=== PATIENT | male | born 1995 | race Hispanic/Latino ===

== ENCOUNTER 2016-10-22 00:11 | Emergency (ER) | payer OTHER ==
[2016-10-22] MEDS ORDERED: MOTRIN PO ONE (01:08)
[2016-10-22 03:26] VITALS: BP 127/76
[2016-10-22] MEDS ORDERED: FLEXERIL PO ONE (05:22)
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
== END 2016-10-22 06:51 | disposition home or self-care (01) ==
LOC: ED 00:11
DX: S16.1XXA Strain of muscle, fascia and tendon at neck level, initial encounter (principal); M54.5 Low back pain; M54.6 Pain in thoracic spine; G43.909 Migraine, unspecified, not intractable, without status migrainosus; F17.200 Nicotine dependence, unspecified, uncomplicated; V89.2XXA Person injured in unspecified motor-vehicle accident, traffic, initial encounter; Y93.89 Activity, other specified; Y99.9 Unspecified external cause status; Y92.410 Unspecified street and highway as the place of occurrence of the external cause
CPT/HCPCS: 72072; 72100

== ENCOUNTER 2018-03-18 19:18 | Emergency (ER) | payer SELFPAY ==
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
[2018-03-18 21:08] VITALS: BP 121/76
== END 2018-03-18 21:31 | disposition home or self-care (01) ==
LOC: ED 19:18
DX: S16.1XXA Strain of muscle, fascia and tendon at neck level, initial encounter (principal); M54.9 Dorsalgia, unspecified; G43.909 Migraine, unspecified, not intractable, without status migrainosus; J45.909 Unspecified asthma, uncomplicated; F17.200 Nicotine dependence, unspecified, uncomplicated; F42.9 Obsessive-compulsive disorder, unspecified; V49.59XA Passenger injured in collision with other motor vehicles in traffic accident, initial encounter; Y93.89 Activity, other specified; Y92.89 Other specified places as the place of occurrence of the external cause; Y99.8 Other external cause status
CPT/HCPCS: 99282

== ENCOUNTER 2020-04-02 14:31 | Emergency (ER) | payer SELFPAY ==
[2020-04-02 14:56] VITALS: BP 122/81
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
--- NOTE | 2020-04-02 16:40 | Cat Scan Report ---
CT head/brain wo con INDICATION: right sided headache, history of TBI. TECHNIQUE: Routine CT head. All CT scans at this location are performed using CT dose reduction for A WESLEY by means of automated exposure control. COMPARISON: None. FINDINGS: Intracranial: Rooney-white matter differentiation is maintained. No intracranial hemorrhage. No extra a xial collection.. No hydrocephalus. No herniation. Sinuses: Paranasal sinuses and mastoid air cells are essentially clear. Orbits: Globes are intact. Calvarium: No acute fracture. IMPRESSION: 1. No acute intracranial abnormality. Signer Name: Nazario Lin MD Signed: 04/02/2020 4:36 PM Workstation Name: [id number]
== END 2020-04-02 17:27 | disposition home or self-care (01) ==
LOC: ED 14:31
DX: R51 Headache (principal); G89.29 Other chronic pain; G43.909 Migraine, unspecified, not intractable, without status migrainosus; J45.909 Unspecified asthma, uncomplicated; F17.200 Nicotine dependence, unspecified, uncomplicated; F42.8 Other obsessive-compulsive disorder; Z79.899 Other long term (current) drug therapy
CPT/HCPCS: 70450

== ENCOUNTER 2020-05-27 20:28 | Inpatient (IN) | payer OTHER ==
[2020-05-27] MEDS ORDERED: levETIRAcetam 1000 MG/NS 0.75% 1,000 MG/100 ML BAG IV ONE (20:35)
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
[2020-05-27] MEDS ORDERED: ROCURONIUM 50 MG/5 ML INJ IV ONE (20:50)
[2020-05-27] MEDS ORDERED: ETOMIDATE 20 MG/10 ML INJ IV ONE (20:50)
[2020-05-27] MEDS ORDERED: SODIUM CHLORIDE 0.9% 1000 ML 1,000 ML IV ONE (20:50)
[2020-05-27] MEDS ORDERED: fentaNYL 100 MCG/2 ML INJ IV PRN (20:51)
[2020-05-27] MEDS ORDERED: LIP THERAPY VASELINE TP PRN (20:51)
[2020-05-27] MEDS ORDERED: MINERAL OIL/PETROLATUM, WHITE OPHTH OINT 3.5 GM OU PRN (20:51)
[2020-05-27] MEDS ORDERED: VALPROATE SODIUM 500 MG in SODIUM CHLORIDE 0.9% 100 ML IV ONE (20:57)
[2020-05-27] MEDS: fentaNYL DRIP Premix 2,000 MCG/100 ML BAG IV SCH (21:30)
[2020-05-27 21:35] LABS: Amphetamine Screen,Urine PRESUMPTIVE NEGATIVE; Benzodiazepines Screen,Urine PRESUMPTIVE NEGATIVE; Cannabinoid Screen,Urine PRESUMPTIVE POSITIVE; Cocaine Screen,Urine PRESUMPTIVE NEGATIVE; Methadone Screen,Urine PRESUMPTIVE NEGATIVE; Opiate Screen,Urine PRESUMPTIVE NEGATIVE
[2020-05-27 21:42] LABS: Bacteria,Urine 1+ /HPF (Negative); Bilirubin,Urine NEG (Negative); Blood,Urine SM (Negative); Color,Urine Colorless (Yellow); Protein,Urine <15 mg/dL mg/dL (Negative); RBC,Urine < 1.0 /HPF (0.0-6.0); Urobilinogen,Urine < 2.0 mg/dL (<2.0)
--- NOTE | 2020-05-27 22:05 | Cat Scan Report ---
CT BRAIN: 05/27/2020 INDICATION / CLINICAL INFORMATION: Seizure. COMPARISON: 04/02/2020 FINDINGS: BRAIN/INTRACRANIAL STRUCTURES: Unenhanced CT images of the brain were obtained and compared to the re cent prior exam from 04/02/2020. There has been no change. There is no evidence of acute abnormality. Ventricles and sulci are slightly prominent in size for a patient of this age, consistent with some u nderlying diffuse cerebral atrophy. There is no CT evidence of acute ischemic injury, hemorrhage, or mass. There are no abnormal extra-ax ial fluid collections. EXTRACRANIAL STRUCTURES: Unremarkable. IMPRESSION: No acute abnormality. No change when compared to the prior exam. All CT scans at this location are performed using dose reduction to ALARA by means of automated expos ure control. Signer Name: Donnie Cao MD Signed: 05/27/2020 10:00 PM Workstation Name: [id number]
--- NOTE | 2020-05-27 22:14 | XRay Report ---
CHEST 1 VIEW INDICATION / CLINICAL INFORMATION: ETT placement. COMPARISON: 07/20/2010 FINDINGS: SUPPORT DEVICES: Interval placement of NG tube with its tip not visualized on this exam but noted to traverse the diaphragm. Interval placement of ET tube with its tip at the level the clavicles. HEART / MEDIASTINUM: No significant abnormality. LUNGS / PLEURA: No significant pulmonary or pleural abnormality. No pneumothorax. ADDITIONAL FINDINGS: No significant additional findings. IMPRESSION: 1. Interval placement of ET tube and NG tube but appropriate position. Signer Name: Dale Cuevas MD Signed: 05/27/2020 10:10 PM Workstation Name: [id number]
[2020-05-27 22:15] LABS: Hematocrit 44.4 % (35.5-45.6); Hemoglobin 14.8 gm/dl (11.8-15.2)
[2020-05-27 22:18] LABS: INR 1.22 (0.87-1.13)
[2020-05-27 22:31] LABS: Alanine Aminotransferase 9 units/L (7-56); Albumin 4.1 g/dL (3.9-5); BUN/Creatinine Ratio 12; Blood Urea Nitrogen 11 mg/dL (9-20); Calcium 8.4 mg/dL (8.4-10.2); Hemolysis Index 21
[2020-05-27] MEDS ORDERED: VALPROATE SODIUM IV STA (22:43)
[2020-05-27] MEDS ORDERED: SODIUM CHLORIDE 0.9% IV STA (22:43)
[2020-05-27] MEDS ORDERED: ONDANSETRON 4 MG/2 ML INJ IV PRN (23:11)
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
[2020-05-27] MEDS ORDERED: LORazepam 2 MG/ML VIAL IV PRN (23:22)
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
[2020-05-28] MEDS ORDERED: ENOXAPARIN 40 MG/0.4 ML INJ SUB-Q ONE (00:19)
[2020-05-28] MEDS ORDERED: LACTATED RINGERS 1,000 ML ONE (00:20)
[2020-05-28] MEDS ORDERED: ETOMIDATE 20 MG/10 ML INJ IV ONE (00:24)
[2020-05-28] MEDS ORDERED: ROCURONIUM 50 MG/5 ML INJ IV ONE (00:24)
[2020-05-28] MEDS: LACTATED RINGERS 1,000 ML IV SCH ×2 (00:25→22:25)
--- NOTE | 2020-05-28 01:14 | XRay Report ---
CHEST 1 VIEW 12:06 AM INDICATION / CLINICAL INFORMATION: Follow-up respiratory failure. COMPARISON: Yesterday. FINDINGS: SUPPORT DEVICES: The tip of the endotracheal tube is now approximately 2 cm above the analia. The pos ition of the nasogastric tube has not changed. HEART / MEDIASTINUM: No significant abnormality. LUNGS / PLEURA: Mild focal parenchymal disease is present in the left retrocardiac region. The right lung is clear. No pleural effusion. No pneumothorax. ADDITIONAL FINDINGS: No significant additional findings. IMPRESSION: 1. New parenchymal disease in the left retrocardiac region is more likely related to atelectasis than pneumonia. 2. Endotracheal tube tip is now 2 cm above the analia. Signer Name: Roberto Lockwood MD Signed: 05/28/2020 1:09 AM Workstation Name: [id number]
[2020-05-28] MEDS ORDERED: fentaNYL DRIP Premix 2,000 MCG/100 ML BAG IV ONE ×2 (01:51→07:35)
[2020-05-28] MEDS: fentaNYL DRIP Premix 2,000 MCG/100 ML BAG IV SCH (01:53)
[2020-05-28 04:50] LABS: BUN/Creatinine Ratio 11; Blood Urea Nitrogen 9 mg/dL (9-20); Hemolysis Index 11
[2020-05-28 05:15] LABS: Basophils % (Auto) 0.2 % (0.0-1.8); Eosinophils % (Auto) 0.1 % (0.0-4.3); Hematocrit 44.1 % (35.5-45.6); Hemoglobin 14.7 gm/dl (11.8-15.2); Lymphocytes # (Auto) 1.2 K/mm3 (1.2-5.4); Lymphocytes % (Auto) 8.1 % (13.4-35.0); Mean Corpuscular HGB Conc 33 % (32-34); Mean Corpuscular Volume 84 fl (84-94); Monocytes # (Auto) 0.9 K/mm3 (0.0-0.8); Monocytes % (Auto) 6.6 % (0.0-7.3); Platelet Count 156 K/mm3 (140-440); Red Blood Count 5.25 M/mm3 (3.65-5.03); Red Cell Distribution Width 14.8 % (13.2-15.2)
[2020-05-28 05:19] LABS: INR 1.2 (0.87-1.13)
[2020-05-28] MEDS: SODIUM CHLORIDE 0.9% IV SCH ×3 (05:56→22:24)
[2020-05-28] MEDS: VALPROATE SODIUM IV SCH ×3 (05:56→22:24)
[2020-05-28] MEDS ORDERED: levETIRAcetam 500 MG in DEXTROSE 5% IN WATER 100 ML IV SCH (10:00)
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
[2020-05-28] MEDS ORDERED: LORazepam 2 MG/ML VIAL ONE (14:12)
[2020-05-28] MEDS ORDERED: diphenhydrAMINE 50 MG/ML VIAL ONE (14:12)
[2020-05-28] MEDS ORDERED: HALOPERIDOL LACTATE 5 MG/1 ML INJ ONE (14:12)
[2020-05-28] MEDS ORDERED: LORazepam 2 MG/ML VIAL IV ONE (15:23)
[2020-05-28] MEDS ORDERED: HALOPERIDOL LACTATE 5 MG/1 ML INJ IM PRN (15:24)
[2020-05-28] MEDS ORDERED: diphenhydrAMINE 50 MG/ML VIAL IV ONE (15:24)
[2020-05-28] MEDS ORDERED: ZIPRASIDONE MESYLATE 20 MG VIAL IM ONE ×2 (15:25→15:29)
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
[2020-05-28] MEDS ORDERED: ENOXAPARIN 40 MG/0.4 ML INJ SUB-Q SCH (22:00)
[2020-05-29] MEDS ORDERED: MORPHINE 2 MG/1 ML INJ IV ONE (00:15)
[2020-05-29] MEDS: SODIUM CHLORIDE 0.9% IV SCH (05:05)
[2020-05-29] MEDS: VALPROATE SODIUM IV SCH (05:05)
[2020-05-29 08:22] VITALS: BP 113/75
--- NOTE | 2020-05-29 09:54 | Discharge Summary ---
Providers - Providers Date of Admission: 05/27/20 23:02 Date of discharge: 05/29/20 Attending physician: CASSIE GOODRICH 05/27/20 20:51 Consult to Physician [CONS] Stat Comment: Dr. Ricardo spoke with Dr. Mahajan @ 1960 Consulting Provider: MEGAN MAHAJAN Physician Instructions: Reason For Exam: rep failure 05/27/20 23:13 Consult to Dietitian/Nutrition [CONS] Routine Physician Instructions: Reason For Exam: Reason for Consult: Diet education Primary care physician: MANAGER [employer]MENT Hospitalization Condition: Critical Disposition: DC-01 TO HOME OR SELFCARE Exam - Constitutional Vitals: Temp Pulse Resp BP Pulse Ox 97.3 F L 60 20 113/75 94 05/29/20 07:20 05/29/20 07:20 05/29/20 07:20 05/29/20 07:20 05/29/20 07:20 General appearance: Present: no acute distress, well-nourished - EENT Eyes: Present: PERRL ENT: hearing intact, clear oral mucosa - Neck Neck: Present: supple, normal ROM - Respiratory Respiratory effort: normal Respiratory: bilateral: CTA - Cardiovascular Heart Sounds: Present: S1 & S2. Absent: rub, click - Extremities Extremities: pulses symmetrical, No edema Peripheral Pulses: within normal limits - Abdominal General gastrointestinal: Present: soft, non-tender, non-distended, normal bowel sounds Male genitourinary: Present: normal - Integumentary Integumentary: Present: clear, warm, dry - Musculoskeletal Musculoskeletal: gait normal, strength equal bilaterally - Psychiatric Psychiatric: appropriate mood/affect, intact judgment & insight - Neurologic Neurologic: CNII-XII intact, moves all extremities Plan Follow up with: PRIMARY CARE, [Primary Care Provider] - 3-5 Days
== END 2020-05-29 14:49 | disposition home or self-care (01) | DRG 100 ==
LOC: ED 20:28 → CC1 23:02 → 4A 05-28 17:30
PROVIDERS: ADMIT Internal Medicine Geriatric Medicine; ATTEND Internal Medicine
PROC: 0BH17EZ Insertion of Endotracheal Airway into Trachea, Via Natural or Artificial Opening (ICD-10-PCS; principal; 2020-05-27)
PROC: 5A1945Z Respiratory Ventilation, 24-96 Consecutive Hours (ICD-10-PCS; 2020-05-27)
PROC: 4A033R1 Measurement of Arterial Saturation, Peripheral, Percutaneous Approach (ICD-10-PCS; 2020-05-27)
DX: G40.901 Epilepsy, unspecified, not intractable, with status epilepticus (principal); J96.01 Acute respiratory failure with hypoxia; F23 Brief psychotic disorder; Z87.820 Personal history of traumatic brain injury; G43.909 Migraine, unspecified, not intractable, without status migrainosus; J45.909 Unspecified asthma, uncomplicated; F17.200 Nicotine dependence, unspecified, uncomplicated; D72.829 Elevated white blood cell count, unspecified
CPT/HCPCS: 36415; 70450; 71045; 80048; 80053; 80164; 80307; 80320; 81001; 82550; 82805; 83735; 85014; 85018; 85025; 85049; 85610; 93005; 94002; G0378; G0480; J1200; J1630; J1650; J2060; J2270; J2704; J3010; J3486; J7030; J7120

== ENCOUNTER 2022-03-10 10:25 | Emergency (ER) | payer SELFPAY ==
[2022-03-10] MEDS ORDERED: SODIUM CHLORIDE 0.9% 1000 ML 1,000 ML IV ONE (10:38)
[2022-03-10] MEDS ORDERED: levETIRAcetam 500 MG in DEXTROSE 5% IN WATER 100 ML IV NR (10:41)
[2022-03-10 10:47] VITALS: BP 117/69
[2022-03-10 11:34] LABS: Alanine Aminotransferase 12 units/L (7-56); Albumin 4.5 g/dL (3.9-5); BUN/Creatinine Ratio 15; Blood Urea Nitrogen 12 mg/dL (9-20); Calcium 9.2 mg/dL (8.4-10.2); Hemolysis Index 5
[2022-03-10 11:37] LABS: INR 0.97 (0.87-1.13)
[2022-03-10 11:40] LABS: Basophils % (Auto) 0.5 % (0.0-1.8); Eosinophils # (Auto) 0.1 K/mm3 (0.0-0.4); Eosinophils % (Auto) 2.3 % (0.0-4.3); Hemoglobin 15.3 gm/dl (11.8-15.2); Lymphocytes # (Auto) 1.4 K/mm3 (1.2-5.4); Lymphocytes % (Auto) 25.1 % (13.4-35.0); Mean Corpuscular HGB Conc 33 % (32-34); Mean Corpuscular Volume 83 fl (84-94); Monocytes # (Auto) 0.5 K/mm3 (0.0-0.8); Monocytes % (Auto) 9.7 % (0.0-7.3); Platelet Count 145 K/mm3 (140-440); Red Blood Count 5.55 M/mm3 (3.65-5.03); Red Cell Distribution Width 14.9 % (13.2-15.2)
[2022-03-10 13:10] LABS: Amphetamine Screen,Urine Negative; Benzodiazepines Screen,Urine Negative; Cocaine Screen,Urine Negative; Methadone Screen,Urine Negative; Opiate Screen,Urine Negative
[2022-03-10] MEDS ORDERED: DIVALPROEX ER 500 MG TAB PO ONE (13:14)
[2022-03-10 13:36] LABS: Cannabinoid Screen,Urine Positive
[2022-03-10 13:37] LABS: Bacteria,Urine 1+ /HPF (Negative); Mucus,Urine FEW /HPF
--- NOTE | 2022-03-10 13:48 | Emergency Department Report ---
ED General Adult HPI - General Chief complaint: Seizure Stated complaint: SEIZURE PUI?: No Time Seen by Provider: 03/10/22 10:38 Source: EMS Mode of arrival: Stretcher Limitations: Altered Mental Status - History of Present Illness Initial comments: pt here from home, witnessed seizure, pt vomiting, post ictal, out of meds -: Gradual, days(s) Radiation: non-radiation Severity scale (0 -10): 0 Improves with: none Worsens with: none Associated Symptoms: denies: denies other symptoms, confusion, chest pain, cough, diaphoresis, fever/chills Treatments Prior to Arrival: none - Related Data Previous Rx's Medication Instructions Recorded Last Taken Type levETIRAcetam [Keppra] 750 mg PO BID #60 udc 05/29/20 Unknown Rx Allergies Allergy/AdvReac Type Severity Reaction Status Date / Time No Known Allergies Allergy Verified 03/10/22 10:30 ED Review of Systems ROS: Stated complaint: SEIZURE Other details as noted in HPI Constitutional: denies: chills, fever Eyes: denies: eye pain, eye discharge, vision change ENT: denies: ear pain, throat pain Respiratory: denies: cough, shortness of breath, wheezing Cardiovascular: denies: chest pain, palpitations Endocrine: no symptoms reported Gastrointestinal: denies: abdominal pain, nausea, diarrhea Genitourinary: denies: urgency, dysuria Musculoskeletal: denies: back pain, joint swelling, arthralgia Skin: denies: rash, lesions Neurological: denies: headache, weakness, paresthesias Psychiatric: denies: anxiety, depression Hematological/Lymphatic: denies: easy bleeding, easy bruising ED Past Medical Hx - Past Medical History Previous Medical History?: Yes Hx Headaches / Migraines: Yes Hx Seizures: Yes Hx Psychiatric Treatment: Yes (OCD) Hx Asthma: Yes Additional medical history: ocd, TBI - Surgical History Additional Surgical History: denies - Social History Smoking Status: Current Every Day Smoker Substance Use Type: None - Medications Home Medications: Home Medications Medication Instructions Recorded Confirmed Last Taken Type levETIRAcetam [Keppra] 750 mg PO BID #60 udc 05/29/20 Unknown Rx ED Physical Exam - General Limitations: Altered Mental Status General appearance: alert, in no apparent distress - Head Head exam: Present: atraumatic, normocephalic - Eye Eye exam: Present: normal appearance - ENT ENT exam: Present: mucous membranes moist - Neck Neck exam: Present: normal inspection - Respiratory Respiratory exam: Present: normal lung sounds bilaterally. Absent: respiratory distress - Cardiovascular Cardiovascular Exam: Present: regular rate, normal rhythm. Absent: systolic murmur, diastolic murmur, rubs, gallop - GI/Abdominal GI/Abdominal exam: Present: soft, normal bowel sounds - Rectal Rectal exam: Present: deferred - Extremities Exam Extremities exam: Present: normal inspection - Back Exam Back exam: Present: normal inspection - Neurological Exam Neurological exam: Present: alert, oriented X3 - Psychiatric Psychiatric exam: Present: normal affect, normal mood - Skin Skin exam: Present: warm, dry, intact, normal color. Absent: rash ED Course Vital Signs 03/10/22 03/10/22 03/10/22 10:27 10:40 10:46 Pulse Rate 84 Respiratory 17 Rate Blood Pressure 117/69 Blood Pressure 130/70 [Left] O2 Sat by Pulse 95 99 98 Oximetry ED Medical Decision Making - Lab Data Result diagrams: 03/10/22 10:48 03/10/22 10:48 Critical care attestation.: If time is entered above; I have spent that time in minutes in the direct care of this critically ill patient, excluding procedure time. ED Disposition Clinical Impression: Seizure Disposition: 01 HOME / SELF CARE / HOMELESS Is pt being admited?: No Does the pt Need Aspirin: No Condition: Stable Instructions: Epilepsy Referrals: PRIMARY CARE, [Primary Care Provider] - 3-5 Days
[2022-03-10 14:03] LABS: Bilirubin,Urine Negative (Negative); Color,Urine Yellow (Yellow)
[2022-03-10 14:04] LABS: Blood,Urine 1+ (Negative)
== END 2022-03-10 15:15 | disposition home or self-care (01) ==
LOC: ED 10:25
DX: R56.9 Unspecified convulsions (principal); J45.909 Unspecified asthma, uncomplicated; F17.200 Nicotine dependence, unspecified, uncomplicated
CPT/HCPCS: 36415; 80053; 80307; 81001; 82140; 82550; 84484; 85025; 85610; 96374; 99284; J1953; J7030; J7060; 80320; G0480